=== PATIENT | female | born 1985 | race Two or more races ===

== ENCOUNTER 2022-05-10 15:53 | Emergency (ER) | payer OTHER, SELFPAY ==
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
[2022-05-10 15:58] VITALS: BP 125/83; PULSE 95; RESP 18; TEMP 36.9; O2SAT 97; BMI 30.9
[2022-05-10] MEDS: Acetaminophen 325 MG TABLET 650 MG PO (16:02)
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
[2022-05-10 17:50] VITALS: BP 144/76; PULSE 74; RESP 16; TEMP 37.1; O2SAT 97
== END 2022-05-10 17:59 | disposition home or self-care (01) ==
PROVIDERS: Emergency Provider Emergency Medicine
DX: S13.4XXA Sprain of ligaments of cervical spine, initial encounter (principal); M54.6 Pain in thoracic spine; M54.2 Cervicalgia; V43.52XA Car driver injured in collision with other type car in traffic accident, initial encounter; Y93.9 Activity, unspecified; Y92.410 Unspecified street and highway as the place of occurrence of the external cause; Y99.9 Unspecified external cause status
CPT/HCPCS: 72040; 72070; 99283